=== PATIENT | female | born 1935 | race Caucasian/White ===

== ENCOUNTER 2016-08-06 11:49 | Emergency (ER) | payer MEDICARE ==
--- NOTE | 2016-08-06 12:40 | Emergency Department Record ---
History of Present Illness - General Chief complaint: Pain Stated complaint: SHOULDER/BACK PAIN Time Seen by Provider: 08/06/16 12:40 Source: Patient, Family Mode of Arrival: Wheelchair Limitations: No limitations - History of Present Illness Initial comments: The patient is here with her daughter due to neck, back and shoulder pain. She has possibly been falling recently per her daughter and has been found on the floor twice in the last week. Now today she is complaining of a ANDINO, with neck and shoulder and upper back pain. The family is not sure if she has fallen again and denies any new medicines, fever, chills, abdominal pain or vomiting. She is not on any blood thinners. The patient has severe dementia per her daughter. She also has had her GB removed in the past. MD Complaint: Neck Pain, Other Onset/Timin -: Days(s) Location: Bilateral, Shoulder Consistency: Constant Improves with: Nothing Worsens with: Nothing Associated Symptoms: Denies other symptoms - Related Data Home Medications Medication Instructions Recorded Confirmed Last Taken Atorvastatin Calcium [Lipitor] 10 mg PO DAILY 08/06/16 08/06/16 Unknown Hydrochlorothiazide 12.5 mg PO DAILY 08/06/16 08/06/16 Unknown [Hydrochlorothiazide] Levothyroxine Sodium [Synthroid] 25 mcg PO DAILY 08/06/16 08/06/16 Unknown Mirtazapine [Remeron] 15 mg PO QHS 08/06/16 08/06/16 Unknown Oxycodone HCl 2.5 mg PO BID 08/06/16 08/06/16 Unknown Risperidone [Risperdal] 0.5 mg PO BID 08/06/16 08/06/16 Unknown Zolpidem Tartrate [Ambien] 5 mg PO QHS 08/06/16 08/06/16 Unknown Allergies Allergy/AdvReac Type Severity Reaction Status Date / Time aspirin Allergy Unknown PT UNSURE Verified 07/16/14 23:00 OF REACTION NSAIDS (Non-Steroidal Allergy Unknown PT UNSURE Verified 07/16/14 23:00 Anti-Inflamma OF REACTION Pyrazoles Allergy Unknown PT UNSURE Verified 07/16/14 23:00 OF REACTION Salicylates * Allergy Unknown PT UNSURE Verified 07/16/14 23:00 OF REACTION Travel Screening - Travel/Exposure Within Last 30 Days Have you traveled within the last 30 days?: No Review of Systems Constitutional: Denies: Chills, Fever Eyes: Denies: Eye discharge ENT: Denies: Congestion Respiratory: Denies: Cough, Dyspnea Cardiovascular: Denies: Arrhythmia, Chest pain Endocrine: Denies: Fatigue Gastrointestinal: Denies: Abdominal pain, Diarrhea, Nausea, Vomiting Genitourinary: Denies: Dysuria Musculoskeletal: Reports: Arthralgia, Back pain Skin: Denies: Bruising Past Medical History - SOCIAL HISTORY Smoking Status: Never smoker Alcohol Use: None Drug Use: None - RESPIRATORY Hx Respiratory Disorders: No - CARDIOVASCULAR Hx Cardio Disorders: No Hx Hypertension: Yes - NEURO Hx Neuro Disorders: Yes Hx Dementia: Yes - GI Hx GI Disorders: No - Hx Genitourinary Disorders: No - ENDOCRINE Hx Endocrine Disorders: Yes Hx Diabetes: Yes (32 yrs) - MUSCULOSKELETAL Hx Musculoskeletal Disorders: No Hx Arthritis: Yes - PSYCH Hx Psych Problems: No - HEMATOLOGY/ONCOLOGY Hx Hematology/Oncology Disorders: No Family Medical History Any Significant Family History?: No Physical Exam - General General Appearance: Alert, Cooperative, No acute distress - Head Head exam: Atraumatic, Normocephalic, Normal inspection - Eye Eye exam: Normal appearance, PERRL - Neck Neck exam: Normal inspection, Full ROM, Tenderness (There is diffuse mild tenderness to palpation to the neck and upper back area.) - Respiratory Respiratory exam: Normal lung sounds bilaterally. negative: Respiratory distress - Cardiovascular Cardiovascular Exam: Regular rate, Normal rhythm, Normal heart sounds - GI/Abdominal GI/Abdominal exam: Soft, Normal bowel sounds. negative: Distended, Rebound, Rigid, Tenderness - Extremities Extremities exam: Normal inspection, Full ROM, Normal capillary refill. negative: Joint swelling, Tenderness - Back Back exam: Denies: Normal inspection (The patient is very kyphotic.), Paraspinal tenderness - Neurological Neurological exam: Alert (The patient is oriented to name only which is normal for her per family.), Normal gait. negative: Abnormal gait, Altered, Motor sensory deficit, Oriented X3 Course Vital Signs 08/06/16 12:39 Temperature 98.7 F Pulse Rate [ 77 Pulse Ox Probe] Respiratory 20 Rate Blood Pressure 159/73 [Left Arm] Pulse Ox 97 - Reevaluation(s) Reevaluation #1: The patient is resting comfortably. She denies any AP, CP, SOB, or nausea. On exam her abdomen is very soft and nontender in all 4 quads. I did discuss the lab results with the patient's family. I am concerned about the elevated bands on the peripheral smear but the patient's WBC is normal and she has no fever, AP , or dysuria. She also has mild elevations of her liver enzymes but has had her GB removed and we have no old tests to compare them to. She still seems to by having joint pain with movement but denies any new issues. I did add on some cardiac enzymes and am waiting on the results. 08/06/16 14:47 Reevaluation #2: The patient does live in her own house with family. I did ask the daughter if she was comfortable taking the patient home and she states she is. 08/06/16 14:50 Reevaluation #3: The patient is doing well now. She denies any pain or discomfort. On exam her abdomen is very soft and nontender in all 4 quads. 08/06/16 15:23 Medical Decision Making - Data Complexity MDM Data: Labs Ordered and/or Reviewed, X-Ray Ordered and/or Reviewed, EKG Ordered and/or Reviewed - Lab Data Result diagrams: 08/06/16 13:00 08/06/16 13:00 - EKG Data -: EKG Interpreted by Me EKG: No Acute Changes, Normal EKG - Radiology Data Radiology results: Report reviewed (The xrays did not demostrate any acute changes. There was a compression fx of L3 of indeterminate age.) Disposition Disposition: Discharge Clinical Impression: Neck arthralgia Instructions: Pain Management in the Elderly (ED) Additional Instructions: Please see your PCP tomorrow to recheck your WBC and liver enzymes. Please return to the ER for any increased pain, fever, or vomiting. Forms: Patient Portal Access Time of Disposition: 15:19
[2016-08-06 13:08] LABS: HEMATOCRIT 40.7 % (35.0-47.0); HEMOGLOBIN 13.2 gm/dl (11.6-16.0); MEAN CELL VOLUME 90.2 fl (81-97); MEAN CORPUSCULAR HEMOGLOBIN 29.3 pg (27-33); MEAN CORPUSCULAR HGB CONC 32.4 g/dl (32-36); MEAN PLATELET VOLUME 9.7 fl (7.4-10.4); PLATELET COUNT 207 K/uL (130-400); RED BLOOD COUNT 4.51 M/uL (3.80-5.40); RED CELL DISTRIBUTION WIDTH 12.5 % (11.5-14.5); WHITE BLOOD COUNT W/O DIFF 6.1 K/uL (4.2-12.2)
[2016-08-06 13:21] LABS: PLATELET ESTIMATE NORMAL (NORMAL)
[2016-08-06 13:24] LABS: ALB/GLOB RATIO 1.2 (1.1-1.8); ALBUMIN 3.9 gm/dL (3.5-5.0); ALKALINE PHOSPHATASE 158 U/L (38-126); ALT/SGPT 107 U/L (9-52); AST/SGOT 78 U/L (14-36); BLOOD UREA NITROGEN 15 mg/dL (7-17); CREATININE 0.8 mg/dL (0.52-1.04); EST GLOMERULAR FILTRATION RATE > 60 ml/min; GLUCOSE,RANDOM 118 mg/dL (70-110); TOTAL PROTEIN 7.1 gm/dL (6.3-8.2)
[2016-08-06 14:28] LABS: URINE APPEARANCE CLEAR; URINE BILIRUBIN NEGATIVE (NEGATIVE); URINE BLOOD NEGATIVE (NEGATIVE); URINE COLOR YELLOW; URINE GLUCOSE (UA) NEGATIVE (NEGATIVE); URINE KETONE NEGATIVE (NEGATIVE); URINE LEUKOCYTE ESTERASE NEGATIVE (NEGATIVE); URINE NITRITE NEGATIVE (NEGATIVE); URINE PROTEIN NEGATIVE (NEGATIVE)
[2016-08-06 14:58] LABS: CREATINE PHOSPHOKINASE 24 U/L (30-135)
[2016-08-06 15:11] LABS: CKMB 0.6 ug/L (0-6)
[2016-08-06 15:13] LABS: TROPONIN I < 0.012 ng/mL (0.00-0.034)
== END 2016-08-06 15:42 | disposition home or self-care (01) ==
LOC: ER 11:49
DX: M48.56XA Collapsed vertebra, not elsewhere classified, lumbar region, initial encounter for fracture (principal); M54.2 Cervicalgia; R74.8 Abnormal levels of other serum enzymes; R51 Headache; M54.6 Pain in thoracic spine; M25.512 Pain in left shoulder; M25.511 Pain in right shoulder; F03.90 Unspecified dementia, unspecified severity, without behavioral disturbance, psychotic disturbance, mood disturbance, and anxiety; E11.9 Type 2 diabetes mellitus without complications
CPT/HCPCS: 70450; 72072; 72100; 72125; 80053; 81003; 82550; 82553; 84484; 85027; 93005; 93010; 99284

== ENCOUNTER 2016-09-16 19:59 | Emergency (ER) | payer MEDICARE ==
[2016-09-16] MEDS ORDERED: SODIUM CHLORIDE 0.9% 500 ML IV ONE (20:45)
--- NOTE | 2016-09-16 20:54 | Emergency Department Record ---
History of Present Illness - General Chief Complaint: Fall Injury Stated Complaint: FALL Time Seen by Provider: 09/16/16 20:44 Source: Family Mode of Arrival: EMS - History of Present Illness Initial Comments: Daughter reports that she was assisting the patient walking with her walker when her legs gave way and she was lowered to the floor. they are concerned that she had a TIA/CVA last night because she got up at 1 a.m. and was "just not herself." They deny that she has specific pains, but know she acts as if she is in pain sometimes. She has dementia, Alzheimers, osteoporosis and a known compression fracture of undetermined age. They gave her an oxycodone prior to arrival. She is DNR per her son. Other family members gave this history. MD Complaint: Fall Onset/Timin -: Hour(s) When Fall Occurred: 4-6 hours BLOCK [place]WY[place] Fall Witnessed: Yes, by family Place Fall Occurred: Home Loss of Consciousness: None Prolonged Down Time?: No Location: Buttocks Severity scale (1-10): 8 Quality: Aching Context: History of frequent falls Associated Symptoms: Denies - [place] Coma Scale Eye Response: (4) Open spontaneously Motor Response: (6) Obeys commands Verbal Response: (5) Oriented [place] Total: 15 - Related Data Home Medications Medication Instructions Recorded Confirmed Last Taken Atorvastatin Calcium [Lipitor] 10 mg PO DAILY 08/06/16 09/16/16 Unknown Hydrochlorothiazide 12.5 mg PO DAILY 08/06/16 09/16/16 Unknown [Hydrochlorothiazide] Levothyroxine Sodium [Synthroid] 25 mcg PO DAILY 08/06/16 09/16/16 Unknown Mirtazapine [Remeron] 15 mg PO QHS 08/06/16 09/16/16 Unknown Oxycodone HCl 2.5 mg PO BID 08/06/16 09/16/16 Unknown Risperidone [Risperdal] 0.5 mg PO BID 08/06/16 09/16/16 Unknown Zolpidem Tartrate [Ambien] 5 mg PO QHS 08/06/16 09/16/16 Unknown Sulfamethoxazole/Trimethoprim 1 each PO BID 09/16/16 09/16/16 Unknown [Bactrim Ds Tablet] Allergies Allergy/AdvReac Type Severity Reaction Status Date / Time aspirin Allergy Unknown PT UNSURE Verified 07/16/14 23:00 OF REACTION NSAIDS (Non-Steroidal Allergy Unknown PT UNSURE Verified 07/16/14 23:00 Anti-Inflamma OF REACTION Pyrazoles Allergy Unknown PT UNSURE Verified 07/16/14 23:00 OF REACTION Salicylates * Allergy Unknown PT UNSURE Verified 07/16/14 23:00 OF REACTION Travel Screening - Travel/Exposure Within Last 30 Days Have you traveled within the last 30 days?: No Review of Systems Reviewed: No additional complaints except as noted below Constitutional: Reports: As per HPI. Denies: Chills, Fever, Malaise, Night sweats, Weakness, Weight change Eyes: Reports: As per HPI. Denies: Eye discharge, Eye pain, Photophobia, Vision change ENT: Reports: As per HPI. Denies: Congestion, Dental pain, Ear pain, Epistaxis , Hearing loss, Throat pain Respiratory: Reports: As per HPI. Denies: Cough, Dyspnea, Hemoptysis, Stridor, Wheezes Cardiovascular: Reports: As per HPI. Denies: Arrhythmia, Chest pain, Dyspnea on exertion, Edema, Murmurs, Orthopnea, Palpitations, Paroxysmal nocturnal dyspnea, Rheumatic Fever, Syncope Endocrine: Reports: As per HPI. Denies: Fatigue, Heat or cold intolerance, Polydipsia, Polyuria Gastrointestinal: Reports: As per HPI. Denies: Abdominal pain, Constipation, Diarrhea, Hematemesis, Hematochezia, Melena, Nausea, Vomiting Genitourinary: Reports: As per HPI. Denies: Abnormal menses, Discharge, Dyspareunia, Dysuria, Frequency, Hematuria, Incontinence, Retention, Urgency Musculoskeletal: Reports: As per HPI. Denies: Arthralgia, Back pain, Gout, Joint swelling, Myalgia, Neck pain Skin: Reports: As per HPI. Denies: Bruising, Change in color, Change in hair/ nails, Lesions, Pruritus, Rash Neurological: Reports: As per HPI. Denies: Abnormal gait, Confusion, Headache, Numbness, Paresthesias, Seizure, Tingling, Tremors, Vertigo, Weakness Psychiatric: Reports: As per HPI. Denies: Anxiety, Auditory hallucinations, Depression, Homicidal thoughts, Suicidal thoughts, Visual hallucinations Hematological/Lymphatic: Reports: As per HPI. Denies: Anemia, Blood Clots, Easy bleeding, Easy bruising, Swollen glands Past Medical History - SOCIAL HISTORY Smoking Status: Never smoker Alcohol Use: None Drug Use: None - RESPIRATORY Hx Respiratory Disorders: No - CARDIOVASCULAR Hx Cardio Disorders: No Hx Hypertension: Yes - NEURO Hx Neuro Disorders: Yes Hx Dementia: Yes - GI Hx GI Disorders: No - Hx Genitourinary Disorders: No - ENDOCRINE Hx Endocrine Disorders: Yes Hx Diabetes: Yes (30 yrs) - MUSCULOSKELETAL Hx Musculoskeletal Disorders: No Hx Arthritis: Yes - PSYCH Hx Psych Problems: No - HEMATOLOGY/ONCOLOGY Hx Hematology/Oncology Disorders: No Family Medical History Any Significant Family History?: No Physical Exam - General General Appearance: Alert, Cooperative, No acute distress (grimaces in a nonspecific way; nonverbal to my questioning) - Head Head exam: Normal inspection - Eye Eye exam: Normal appearance, PERRL Pupils: Normal accommodation - ENT ENT exam: Normal exam, Mucous membranes moist, Normal external ear exam, Normal orophraynx, TM's normal bilaterally Ear exam: Normal external inspection. negative: External canal tenderness Nasal Exam: Normal inspection. negative: Discharge, Sinus tenderness Mouth exam: Normal external inspection, Tongue normal Teeth exam: Normal inspection. negative: Dental caries Throat exam: Normal inspection. negative: Tonsillar erythema, Tonsillar exudate - Neck Neck exam: Normal inspection, Full ROM. negative: Tenderness - Respiratory Respiratory exam: Normal lung sounds bilaterally. negative: Respiratory distress - Cardiovascular Cardiovascular Exam: Regular rate, Normal rhythm, Normal heart sounds - GI/Abdominal GI/Abdominal exam: Soft, Normal bowel sounds. negative: Tenderness - Rectal Rectal exam: Deferred - exam: Deferred - Extremities Extremities exam: Normal inspection, Full ROM, Normal capillary refill. negative: Calf tenderness, Pedal edema, Tenderness - Back Back exam: Reports: Normal inspection, Full ROM. Denies: Muscle spasm, Rash noted, Tenderness - Neurological Neurological exam: Alert, CN II-XII intact, Normal gait. negative: Motor sensory deficit - Psychiatric Psychiatric exam: Normal affect, Normal mood - Skin Skin exam: Dry, Intact, Normal color, Warm Course Vital Signs 09/16/16 20:13 Temperature 99.1 F Pulse Rate 84 Respiratory 18 Rate Blood Pressure 171/78 Pulse Ox 95 - Reevaluation(s) Reevaluation #1: All results reviewed and discussed with family. She is constipated from home, so they werre encouraged to increase her BM regimen at home. 09/16/16 22:38 Medical Decision Making - Management Options MDM Management: No Additional Work-up Planned - Data Complexity MDM Data: Labs Ordered and/or Reviewed (UA Neg; lactate 1.3. ), X-Ray Ordered and/or Reviewed (troponin <0.012), EKG Ordered and/or Reviewed - Lab Data Result diagrams: 09/16/16 20:15 09/16/16 20:59 - EKG Data -: EKG Interpreted by Me EKG: No Acute Changes Disposition Disposition: Discharge Clinical Impression: DNR (do not resuscitate) Constipation Qualifiers: Constipation type: slow transit constipation Qualified Code(s): K59.01 - Slow transit constipation Dementia Qualifiers: Dementia type: unspecified type Dementia behavioral disturbance: without behavioral disturbance Qualified Code(s): F03.90 - Unspecified dementia without behavioral disturbance Disposition: Home, Self-Care Condition: (1) Good Instructions: Fall Prevention for Older Adults (ED) Additional Instructions: Home with family. Continue present meds. Increase your bowel regimen to promote BM. Follow up with PCP as needed.
[2016-09-16 20:56] LABS: HEMOGLOBIN 13.6 gm/dl (11.6-16.0); MEAN CELL VOLUME 88.1 fl (81-97); MEAN CORPUSCULAR HEMOGLOBIN 28.5 pg (27-33); MEAN CORPUSCULAR HGB CONC 32.4 g/dl (32-36); MEAN PLATELET VOLUME 10.3 fl (7.4-10.4); PLATELET COUNT 203 K/uL (130-400); RED BLOOD COUNT 4.77 M/uL (3.80-5.40); RED CELL DISTRIBUTION WIDTH 12.9 % (11.5-14.5); WHITE BLOOD COUNT W/O DIFF 7.1 K/uL (4.2-12.2)
[2016-09-16 21:05] LABS: INR 0.99; PROTHROMBIN TIME (PATIENT) 11.2 SECONDS (9.5-12.1)
[2016-09-16 21:17] LABS: BLOOD UREA NITROGEN 8 mg/dL (7-17); CREATININE 0.7 mg/dL (0.52-1.04); EST GLOMERULAR FILTRATION RATE > 60 ml/min; GLUCOSE,RANDOM 152 mg/dL (70-110)
[2016-09-16 21:23] LABS: LACTIC ACID 1.3 mmol/L (0.7-2.1)
[2016-09-16 21:30] LABS: TROPONIN I < 0.012 ng/mL (0.00-0.034)
[2016-09-16 21:33] LABS: URINE APPEARANCE CLEAR; URINE BILIRUBIN NEGATIVE (NEGATIVE); URINE BLOOD NEGATIVE (NEGATIVE); URINE COLOR YELLOW; URINE GLUCOSE (UA) NEGATIVE (NEGATIVE); URINE KETONE TRACE (NEGATIVE); URINE LEUKOCYTE ESTERASE NEGATIVE (NEGATIVE); URINE NITRITE NEGATIVE (NEGATIVE); URINE PROTEIN NEGATIVE (NEGATIVE)
[2016-09-16] MEDS ORDERED: MORPHINE SULFATE 5 MG/ML PFS IVP ONE (22:13)
== END 2016-09-16 23:06 | disposition home or self-care (01) ==
LOC: ER 19:59
DX: G89.11 Acute pain due to trauma (principal); M54.5 Low back pain; K59.01 Slow transit constipation; M25.559 Pain in unspecified hip; M81.0 Age-related osteoporosis without current pathological fracture; I10 Essential (primary) hypertension; E11.9 Type 2 diabetes mellitus without complications; G30.9 Alzheimer's disease, unspecified; F02.80 Dementia in other diseases classified elsewhere, unspecified severity, without behavioral disturbance, psychotic disturbance, mood disturbance, and anxiety; W18.39XA Other fall on same level, initial encounter; Y92.009 Unspecified place in unspecified non-institutional (private) residence as the place of occurrence of the external cause; Z91.81 History of falling
CPT/HCPCS: 99284 ×2; 96374; 83605; 85610; 84484; 80048; 81003; 85027; 71010; 72170; 72125; 70450; 93005; 93010; J2270

== ENCOUNTER 2016-11-29 15:35 | Emergency (ER) | payer MEDICARE ==
--- NOTE | 2016-11-29 16:10 | Emergency Department Record ---
History of Present Illness - General Chief Complaint: Cough Stated Complaint: COUGHING Time Seen by Provider: 11/29/16 16:01 Source: Family Mode of Arrival: Wheelchair Limitations: No limitations - History of Present Illness Initial Comments: The patient is here with her daughter due to a cough for a week. The daughter states it seems like it is a rattly cough at times. She denies any CP, fever, chills, or SOB. The patient has a hx of dementia and is a DNR. The family does not want any aggressive workup but would like the cough evaluated. The patient has a hx of fairly severe dementia and is presently at her baseline. MD Complaint: Cough Onset/Timin -: Week(s) Consistency: Intermittent - Related Data Home Medications Medication Instructions Recorded Confirmed Last Taken Atorvastatin Calcium [Lipitor] 10 mg PO DAILY 08/06/16 11/29/16 Unknown Hydrochlorothiazide 12.5 mg PO DAILY 08/06/16 11/29/16 Unknown [Hydrochlorothiazide] Levothyroxine Sodium [Synthroid] 25 mcg PO DAILY 08/06/16 11/29/16 Unknown Mirtazapine [Remeron] 15 mg PO QHS 08/06/16 11/29/16 Unknown Oxycodone HCl 2.5 mg PO BID 08/06/16 11/29/16 Unknown Risperidone [Risperdal] 0.5 mg PO BID 08/06/16 11/29/16 Unknown Zolpidem Tartrate [Ambien] 5 mg PO QHS 08/06/16 11/29/16 Unknown Previous Rx's Medication Instructions Recorded Azithromycin [Zithromax Susp] 5 ml PO DAILY #30 ml 11/29/16 Allergies Allergy/AdvReac Type Severity Reaction Status Date / Time aspirin Allergy Unknown PT UNSURE Verified 07/16/14 23:00 OF REACTION NSAIDS (Non-Steroidal Allergy Unknown PT UNSURE Verified 07/16/14 23:00 Anti-Inflamma OF REACTION Pyrazoles Allergy Unknown PT UNSURE Verified 07/16/14 23:00 OF REACTION Salicylates * Allergy Unknown PT UNSURE Verified 07/16/14 23:00 OF REACTION Travel Screening - Travel/Exposure Within Last 30 Days Have you traveled within the last 30 days?: No Review of Systems Constitutional: Reports: Malaise. Denies: Chills, Fever Eyes: Denies: Eye discharge ENT: Reports: Congestion Respiratory: Reports: Cough. Denies: Dyspnea Past Medical History - SOCIAL HISTORY Smoking Status: Never smoker Alcohol Use: None Drug Use: None - RESPIRATORY Hx Respiratory Disorders: No - CARDIOVASCULAR Hx Cardio Disorders: No Hx Hypertension: Yes - NEURO Hx Neuro Disorders: Yes Hx Dementia: Yes Hx TIA: Yes - GI Hx GI Disorders: No - Hx Genitourinary Disorders: No - ENDOCRINE Hx Endocrine Disorders: No - MUSCULOSKELETAL Hx Musculoskeletal Disorders: No Hx Arthritis: Yes - PSYCH Hx Psych Problems: No - HEMATOLOGY/ONCOLOGY Hx Hematology/Oncology Disorders: No Family Medical History Any Significant Family History?: No Physical Exam - General General Appearance: Alert, No acute distress - Head Head exam: Atraumatic, Normocephalic, Normal inspection - Eye Eye exam: Normal appearance, PERRL - Neck Neck exam: Normal inspection, Full ROM. negative: Tenderness - Respiratory Respiratory exam: Normal lung sounds bilaterally. negative: Respiratory distress - Cardiovascular Cardiovascular Exam: Regular rate, Normal rhythm, Normal heart sounds - GI/Abdominal GI/Abdominal exam: Soft, Normal bowel sounds. negative: Tenderness - Neurological Neurological exam: Abnormal gait (chronic.), Alert (The patient is not answering questions appropriately which is chronic per family.), Motor sensory deficit. negative: Normal gait, Oriented X3 (Due to severe dementia.) Course Vital Signs 11/29/16 15:43 Temperature 98.0 F Pulse Rate 86 Respiratory 14 Rate Blood Pressure 133/61 Pulse Ox 92 L - Reevaluation(s) Reevaluation #1: I did discuss the xray results with the daughter. Due to the fever and cough I will prescribe an oral Abx even thought the CXR does not clearly demonstrate an infiltrate. She does have an appointment with her PCP tomorrow. 11/29/16 16:31 Medical Decision Making - Data Complexity MDM Data: X-Ray Ordered and/or Reviewed - Radiology Data Radiology results: Report reviewed (CXR: CMG, ? mild interstitial edema, film under penetrated.) Disposition Disposition: Discharge Clinical Impression: Dementia, Cough Disposition: Home, Self-Care Condition: (2) Stable Instructions: Cold Symptoms (ED) Additional Instructions: PLease continue the regular home medicines. Take the Zpak as directed. Please see your PCP tomorrow as planned. Return to the ER if worse. Prescriptions: Azithromycin [Zithromax Susp] 5 ml PO DAILY #30 ml Forms: Patient Portal Access Time of Disposition: 16:33 Quality - Quality Measures Quality Measures: N/A - Blood Pressure Screening View Details: Yes Blood Pressure Classification: Pre-Hypertensive BP Reading Systolic Measurement: 133 Diastolic Measurement: 61 Screening for High Blood Pressure: < Pre-Hypertensive BP, F/U Documented > [ [id number]] Pre-Hypertensive Follow-up Interventions: Follow-up with rescreen every year.
--- NOTE | 2016-11-30 12:20 | RADIOLOGY REPORT ---
EXAM: PORTABLE CHEST HISTORY: DIFFICULTY BREATHING. TECHNIQUE: A portable view of the chest was obtained. Comparison: 09/16/16 chest. FINDINGS: Cardiomegaly with atheromatous change of the thoracic aorta. Sternotomy wires mediastinal clips. Osteopenia. Multiple old rib fractures bilaterally. Mild interstitial edema. Elevation right hemidiaphragm. No pneumothorax. IMPRESSION: CARDIOMEGALY WITH MILD INTERSTITIAL EDEMA. JOB NUMBER: [id number] [facility]
== END 2016-11-29 16:49 | disposition home or self-care (01) ==
LOC: ER 15:35
DX: R05 Cough (principal); F03.90 Unspecified dementia, unspecified severity, without behavioral disturbance, psychotic disturbance, mood disturbance, and anxiety; R06.00 Dyspnea, unspecified; I10 Essential (primary) hypertension
CPT/HCPCS: 71010; 99283